=== PATIENT | male | born 1975 | race Caucasian/White ===

== ENCOUNTER 2023-09-15 23:12 | Emergency (ER) | payer BC ==
[~2023-09-15] VITALS: Ht 193 cm; Wt 112.0 kg
[2023-09-15 23:13] VITALS: TEMP 98.4
[2023-09-16 01:00] LABS: BASOPHILS # (AUTO) 0.1 X10'3 (0-0.2); BASOPHILS % (AUTO) 0.7 % (0-1); EOSINOPHILS # (AUTO) 0.2 X10'3 (0-0.9); EOSINOPHILS % (AUTO) 2.6 % (0-6); HEMOGLOBIN 15.3 g/dl (14.0-17.9); LYMPHOCYTES # (AUTO) 1.7 X10'3 (1.1-4.8); LYMPHOCYTES % (AUTO) 19.7 % (21-51); MEAN CORPUSCULAR HEMOGLOBIN 31.6 PG (27.0-31.0); MEAN CORPUSCULAR VOLUME 92.9 FL (78-98); MONOCYTES # (AUTO) 0.7 X10'3 (0-0.9); MONOCYTES % (AUTO) 7.7 % (2-12); NEUTROPHILS % (AUTO) 69.3 % (42-75); PLATELET COUNT 298 X10'3 (140-440); RED BLOOD COUNT 4.84 X10'6 (4.70-6.10); RED CELL DISTRIBUTION WIDTH 16.1 % (11.5-14.5); WHITE BLOOD COUNT 8.6 X10'3 (4.5-11.0)
[2023-09-16 01:24] LABS: ALBUMIN 3.7 G/DL (3.4-5.0); ANION GAP 11 (8-16); BLOOD UREA NITROGEN 11 MG/DL (7-18); BUN/CREATININE RATIO 14.5 (10.0-20.0); CHLORIDE 106 MMOL/L (99-107); CREATININE 0.76 MG/DL (0.60-1.10); GLUCOSE 100 MG/DL (70-104); POTASSIUM 3.8 MMOL/L (3.5-5.1); PRO BRAIN NATRIURETIC PEPTIDE 82 PG/ML (0-125); SODIUM 142 MMOL/L (135-145); TOTAL CARBON DIOXIDE 25.4 MMOL/L (24-32); eCRCL 149 ML/MIN; eGFR > 90 ML/MIN
[2023-09-16] MEDS ORDERED: AZIT-164 PO (01:35)
[2023-09-16] MEDS ORDERED: ALBU18HF2 INH (01:36)
[2023-09-16] MEDS: azithromycin 250mg tablet PO ONE (01:51)
[2023-09-16 01:56] VITALS: BP 132/84; PULSE 84; RESP 16; O2SAT 97
== END 2023-09-16 01:57 | disposition home or self-care (01) ==
LOC: ER 23:13
DX: J06.9 Acute upper respiratory infection, unspecified (principal); J45.909 Unspecified asthma, uncomplicated; F32.A Depression, unspecified; Z88.8 Allergy status to other drugs, medicaments and biological substances; Z79.899 Other long term (current) drug therapy
CPT/HCPCS: 36415; 71045; 80048; 83880; 84145; 84484; 85025; 93005; 99285

== ENCOUNTER 2023-09-18 17:25 | Emergency (ER) | payer BC ==
[~2023-09-18] VITALS: Ht 190.5 cm; Wt 101.4 kg
[~2023-09-18 17:25] MED LIST: ALBU18HF2 INH; AZIT-164 PO
[2023-09-18] MEDS ORDERED: DOXY-356 PO (22:53)
[2023-09-18] MEDS ORDERED: CEPH-585 PO (22:53)
[2023-09-18] MEDS: DOXYCYCLINE 100MG CAPSULE PO STA (23:09)
[2023-09-18] MEDS: cephalexin 250mg capsule PO ONE (23:09)
[2023-09-18] MEDS: ondansetron 4mg rapidly disintigrating tab PO ONE (23:09)
[2023-09-18 23:11] VITALS: BP 144/74; PULSE 88; RESP 16; TEMP 98; O2SAT 95
== END 2023-09-18 23:12 | disposition home or self-care (01) ==
LOC: ER 17:26
DX: L03.115 Cellulitis of right lower limb (principal); J45.909 Unspecified asthma, uncomplicated; Z91.010 Allergy to peanuts
CPT/HCPCS: 73610; 99284